=== PATIENT | female | born 1990 | race Caucasian/White ===

== ENCOUNTER 2017-07-03 08:57 | Emergency (ER) | payer OTHER ==
[~2017-07-03] VITALS: Ht 165.1 cm; Wt 70.5 kg
[~2017-07-03 08:57] MED LIST: Colace PO; Feosol PO; Motrin PO; Mylicon,Mylanta Gas, PO; NATALCARE RX1 TABLET PO; Percocet 5/325,Endoc PO; Prefera-OB Plus DHA PO
[2017-07-03] MEDS ORDERED: PERCOCET 5/31 TABLET PO (11:02)
[2017-07-03 11:24] VITALS: BP 126/82
== END 2017-07-03 11:24 | disposition home or self-care (01) ==
LOC: EME 08:57
DX: S83.92XA Sprain of unspecified site of left knee, initial encounter (principal); W01.0XXA Fall on same level from slipping, tripping and stumbling without subsequent striking against object, initial encounter; F32.9 Major depressive disorder, single episode, unspecified; F41.9 Anxiety disorder, unspecified; F17.200 Nicotine dependence, unspecified, uncomplicated; Z88.0 Allergy status to penicillin
CPT/HCPCS: 73564; 99281; 99285